=== PATIENT | male | born 1930 ===

== ENCOUNTER 2019-02-18 01:44 | Emergency (ER) | payer BC ==
[~2019-02-18] VITALS: Ht 162.6 cm; Wt 77.1 kg
[~2019-02-18 01:44] MED LIST: ACET325 PO; ALLO100; ASPI81CH; CARV25; CARV6.25; DIPASPER PO; MITIGARE0.6 MG PO; NIFE30ER PO; Omeprazole20 M1; PANT40 PO; POTCHL10ER PO; PRED5 PO; RAMI5; SPIHYD; TORSE20 PO
[2019-02-18 02:35] LABS: BASOPHILS ABSOLUTE AUTO 0.04 K/mm3 (0.00-0.23); BASOPHILS PERCENT AUTO 0 % (0-2); EOSINOPHILS ABSOLUTE AUTO 0.47 K/mm3 (0.00-0.68); EOSINOPHILS PERCENT AUTO 4 % (0-6); Hematocrit 47.1 % (37.0-53.0); Hemoglobin 16.2 g/dL (13.5-17.5); IMMATURE GRAN ABSOLUTE AUTO 0.04 K/mm3 (0.00-0.10); IMMATURE GRAN PERCENT AUTO 0 % (0-1); LYMPHOCYTES PERCENT AUTO 17 % (21-46); MONOCYTES ABSOLUTE AUTO 0.56 K/mm3 (0.16-1.47); MONOCYTES PERCENT AUTO 5 % (4-13); Mean Corpuscular HGB 32.2 pg (26.0-34.0); Mean Corpuscular HGB Conc 34.4 g/dL (31.5-36.5); Mean Corpuscular Volume 94 fL (80-100); Mean Platelet Volume 9.5 fL (9.1-12.4); NEUTROPHILS ABSOLUTE AUTO 8.48 K/mm3 (1.96-9.15); NEUTROPHILS PERCENT AUTO 73 % (41-73); Platelet Count 199 K/mm3 (150-400); RDW Coefficient Variation 12.5 % (11.7-14.2); RDW Standard Deviation 43.2 fL (35.1-46.3); Red Blood Cell Count 5.03 M/mm3 (4.30-5.90); White Blood Cell Count 11.59 K/mm3 (4.00-11.30)
[2019-02-18 02:54] LABS: Albumin, Blood 4.5 g/dL (3.4-5.0); Albumin/Globulin Ratio 1.2 (0.8-1.8); Bun/Creatinine Ratio 19.1 (12.0-20.0); Calcium, Blood 9.4 mg/dL (8.5-10.1); Creatinine, Blood 1.31 mg/dL (0.60-1.20); Globulin, Blood 3.6 g/dL (2.2-4.0); Potassium, Blood 3.6 mmol/L (3.5-5.5); Total Protein, Blood 8.1 g/dL (6.4-8.2)
== END 2019-02-18 05:39 | disposition home or self-care (01) ==
LOC: ER 01:44
PROVIDERS: Emergency Medicine
DX: K52.9 Noninfective gastroenteritis and colitis, unspecified (principal); I10 Essential (primary) hypertension; Z79.52 Long term (current) use of systemic steroids; Z79.899 Other long term (current) drug therapy
CPT/HCPCS: 36415; 74177; 80053; 83690; 84484; 85025; 93005; 93010; 96361; 96374-59; 96375; 99284-25; A9270; A9270-GY; J1170; J2405; J7030; Q9967

== ENCOUNTER → 2019-11-11 | Outpatient (CLI) | payer BC ==
[2019-11-11 15:01] LABS: Creatinine Urine 73.9 mg/dL (27.00-270.00)
== END | disposition home or self-care (01) ==
LOC: LAB 10:05 → LAB SHORT 10:05
PROVIDERS: Internal Medicine Nephrology
DX: N18.2 Chronic kidney disease, stage 2 (mild) (principal); D63.1 Anemia in chronic kidney disease; N25.81 Secondary hyperparathyroidism of renal origin; E55.9 Vitamin D deficiency, unspecified; E78.00 Pure hypercholesterolemia, unspecified; R76.9 Abnormal immunological finding in serum, unspecified; R94.5 Abnormal results of liver function studies; R94.6 Abnormal results of thyroid function studies
CPT/HCPCS: 81050; 82043; 82570; 84156